=== PATIENT | female | born 1945 | race Caucasian/White ===

== ENCOUNTER 2016-04-26 14:45 | Emergency (ER) | payer MEDICARE, MEDICAID ==
[~2016-04-26] VITALS: Ht 167.6 cm; Wt 65.9 kg
[2016-04-26 14:48] VITALS: BP 148/92; PULSE 50; RESP 28; O2SAT 98
--- NOTE | 2016-04-26 15:11 | ED.REPORT ---
HPI-General Illness Date of Service Apr 26, 2016 ED Provider: Ilan Louis MD 70 year old female who is a former smoker presents to the ER accompanied by a female friend with two weeks of difficulty breathing. She also reports productive cough with green/yellow sputum, and chills. Patient denies fever, lower extremity pain, history of heart disease, history of blood clots, and recent surgery or immobilization. Nursing Notes Stated Complaint: DIFFICULTY BREATHING Chief Complaint: Respiratory Distress Nursing Notes Reviewed: Yes Allergies: Coded Allergies: codeine (Verified Allergy, Intermediate, swelling, 04/26/16) Uncoded Allergies: NKFA (Allergy, Unknown, 09/18/04) Scheduled Albuterol HFA (Proair HFA) 8.5 Gm Hfa.aer.ad 2 PUFFS INHALATION Q4H Prednisone (PredniSONE) 20 Mg Tablet 40 MG PO DAILY Scheduled PRN Benzonatate (Tessalon Perle) 100 Mg Capsule 100 MG PO TID PRN PRN For Cough General Time Seen by MD: 15:10 Chief Complaint Breathing problem Hx Obtained From: Patient Arrived By: Walk-in Sudden in Onset?: No Onset Occurred: More than a week ago... (2 weeks) Symptom Duration: Since onset Associated with: Reports: Cough, Denies: Fever Context Related History: Denies COPD Past Medical History Past Medical History Hypothyroid Reports: Diabetes mellitus, Hypertension Past Surgical History Reports: Cholecystectomy, Hysterectomy Smoking History Former Smoker Social History Other Social History: Good social support Ambulatory Status Independent Review of Systems Full Review of Systems Constitutional: Reports: Chills, Denies: Fever Respiratory: Reports: Prod cough, green, Prod cough, yellow, Shortness of breath, Denies: Hemoptysis GI: Denies: Abdominal pain, Constipation, Diarrhea, Nausea, Vomiting Musculoskeletal: Denies: Back pain, Extremity pain, Extremity swelling, Lumbar pain, Neck pain, Thoracic pain Complete sys rev & neg: except as marked. Physical Exam Vital Signs Vital Signs Date Time Temp Pulse Resp B/P Pulse Ox O2 Delivery O2 Flow Rate FiO2 04/26/16 17:23 36.9 60 18 144/79 98 Room Air 04/26/16 14:48 36.4 50 28 148/92 98 Room Air Initial VS: Reviewed Head / Eyes: Atraumatic, Normocephalic Neck: Supple, Non-tender, Full range of motion Abdomen / GI: Soft, Non-tender, No guarding, No rebound, No distention Extremities: Vascular intact, Neuro intact, No swelling, No tenderness Skin: Warm, Dry, No cyanosis Neurologic: Alert, Oriented, Nonfocal General/Constitutional: Awake, Alert, Well developed, Well nourished Diminished Breath Sounds: Positive: Decreased bilateral Wheezing / Retractions: Positive: Wheezing expiratory, Wheezing moderate Coarse breath sounds throughout. Dry cough. Cardiovascular: Heart rate NL, Regular rhythm, Heart sounds NL, Cap refill not delayed, Peripheral circulation NL Interpretation & Diagnostics Lab Results Interpretation Result Diagram: 04/26/16 1515 04/26/16 1515 Test 04/26/16 15:15 04/26/16 15:30 White Blood Count 8.7th/mm3 (3.8-10.1) Red Blood Count 4.85mil/mm3 (3.90-5.20) Hemoglobin 15.9g/dL (12.0-15.6) Hematocrit 44.9% (35.0-46.0) Mean Corpuscular Volume 92.6fL (81-100) Mean Corpuscular Hemoglobin 32.8pg (27.0-35.0) Mean Corpuscular Hemoglobin Concent 35.4% (32.0-37.0) Red Cell Distribution Width 12.7% (12.3-15.4) Platelet Count 286bil/L (150-400) Neutrophils (%) (Auto) 60.8% (40-74) Lymphocytes (%) (Auto) 30.1% (14-46) Monocytes (%) (Auto) 7.8% (4-12) Eosinophils (%) (Auto) 0.6% (0-5) Basophils (%) (Auto) 0.2% (0-3) Sodium Level 136mEq/L (134-144) Potassium Level 4.5mEq/L (3.5-5.2) Chloride Level 99mEq/L (97-108) Carbon Dioxide Level 21mmol/L (18-29) Blood Urea Nitrogen 17mg/dL (8-27) Creatinine 1.16mg/dL (0.57-1.00) Estimat Glomerular Filtration Rate 66mL/min (>59) Glucose Level 103mg/dL (60-99) Calcium Level 9.5mg/dL (8.5-10.1) Total Bilirubin 0.6mg/dL (0.0-1.2) Aspartate Amino Transf (AST/SGOT) 15U/L (0-50) Alanine Aminotransferase (ALT/SGPT) 6U/L (0-32) Alkaline Phosphatase 56U/L (25-165) Troponin T < 0.010ug/L (0.0-0.011) Pro-B-Type Natriuretic Peptide 854.0pg/mL (0-301) Total Protein 7.8g/dL (6.4-8.4) Albumin 3.7g/dL (3.4-5.0) Hold Pereira Top Tube Received (Received) ECG Interpretation ECG Interpretation: Sinus bradycardia Partial LBBB Normal axis Normal intervals Borderline ST segment elevation less than 1mm in leads v1 and v2 No prior ECG available for comparison Time: 16:12 X-Ray Chest Interpretation Chest Xray Interpretation: IMPRESSION: No acute cardiopulmonary abnormality Dictated by: Kal Johns M.D. on 04/26/2016 at 16:39 Approved by: Kal Johns M.D. on 04/26/2016 at 16:40 View: Portable, 1 view Interpretation / Wet Read by: Interpret - Radiologist Re-Eval/Medical Decision Med Decision/Clinical Course 70 year old female who is a former smoker presents to the ER accompanied by a female friend with two weeks of difficulty breathing. She also reports productive cough with green/yellow sputum, and chills. Patient denies fever, lower extremity pain, history of heart disease, history of blood clots, and recent surgery or immobilization. Upon arrival the patient is afebrile and hemodynamically stable with examination as above. CXR: Obtained, reviewed and interpreted by myself shows no evidence of acute infiltrates, effusions or pneumothorax. Cardiac and mediastinal silhouette normal. No bony or soft tissue abnormalities. EKG was obtained and interpreted by myself as documented above. Laboratory studies notable as below: CBC unremarkable BUN 17 Creatinine 1.16 Troponin negative BNP mildly elevated at 854 Here in the emergency department the patient was treated with 40 mg of oral prednisone as well as a DuoNeb treatment. She reported significant symptomatic improvement. Overall presentation most consistent with exacerbation of underlying asthma/COPD. Presentation is at this time I am convincing for acute coronary syndrome or pulmonary embolism. The patient has no recent major pulmonary embolus risk factors or physical exam findings suggestive of DVT. The patient was provided with a four-day course of prednisone as well as albuterol inhaler with spacer. I see no evidence of bacterial pneumonia at this time and I do not feel that antibiotics are indicated. Follow precautions reviewed in detail and she was discharged in stable condition. Source of Hx: Old records Counseled Regarding: Diagnosis, Lab results, Need for follow-up, When/why to return to ED Discharge & Departure Primary Impression: Bronchitis Additional Impressions: Asthma exacerbation Cough Shortness of breath Elevated brain natriuretic peptide (BNP) level Disposition: Home Discharge Condition All VS Reviewed: Yes Condition: Stable Patient Instructions: Acute Bronchitis (DC) Additional Instructions: Thank you for seeking care at emergency room. It is difficult for us to make definitive diagnoses in the ED but we believe that you are experiencing bronchitis. Our primary goal today in the ED was to evaluate you for any life-threatening conditions. Your evaluation was reassuring. You will be discharged with a prescription for Prednisone and albuterol. Please take these as directed. Use Tessalon perle as directed for your cough. You should follow-up with your primary doctor this week. You should return to the ED immediately if you develop worsening shortness of breath, chest pain, fever, chills, pain or swelling in your legs, or any other concerning signs or symptoms. Referrals: Mary Phipps PA-C (PCP) Viri[facility]ose[facility] Attestation Portions of this note were transcribed by Freddie Pineda. I, Dr. Louis, personally performed the history, physical exam and medical decision-making; I reviewed and confirmed the accuracy of the information in the transcribed note. Signed by: Lio Frye, 04/26/2016 and 16:50 copies to: Mary Phipps PA-C, Beck O MD Apr 26, 2016 15:11 FREDDIE PINEDA Apr 26, 2016 16:17
[2016-04-26 15:42] LABS: BASOPHILS % (AUTO) 0.2 % (0-3); EOSINOPHILS % (AUTO) 0.6 % (0-5); MONOCYTES % (AUTO) 7.8 % (4-12); Mean Corpuscular Hemoglobin 32.8 pg (27.0-35.0); Mean Corpuscular Volume 92.6 fL (81-100); NEUTROPHILS % (AUTO) 60.8 % (40-74); Platelet Count 286 bil/L (150-400)
[2016-04-26 16:09] LABS: TROPONIN T < 0.010 ug/L (0.0-0.011)
[2016-04-26] MEDS ORDERED: Albuterol-Ipratropium 3 mL Inhalation Solution NEB ONE (16:25)
[2016-04-26] MEDS ORDERED: BENZ-12 PO (16:25)
[2016-04-26] MEDS ORDERED: PRE20 PO (16:25)
[2016-04-26] MEDS ORDERED: predniSONE 20 mg Tablet PO ONE (16:25)
[2016-04-26] MEDS ORDERED: Albuterol HFA 60 Puff 8 Gm Inhaler INHALATION PRN (16:25)
[2016-04-26] MEDS ORDERED: ALBU8.5H2 INHALATION (16:26)
--- NOTE | 2016-04-26 16:42 | DRSVH ---
PROCEDURE: X-RAY CHEST ONE VIEW, PORTABLE ([id number]) INDICATIONS: productive cough TECHNIQUE: One view of the chest was acquired. COMPARISON: 06/24/2015 FINDINGS: Surgical changes and devices: Surgical clips right upper quadrant.. Lungs and pleura: No pleural effusions or pneumothorax. Lungs are clear. Mediastinum: Mediastinal contours appear normal. Heart size is normal. Aortic calcifications. Bones and chest wall: No suspicious bony lesions. Degenerative a.c. joint disease. Overlying soft t issues appear unremarkable. IMPRESSION: No acute cardiopulmonary abnormality Dictated by: Kal Johns M.D. on 04/26/2016 at 16:39 Approved by: Kal Johns M.D. on 04/26/2016 at 16:40
[2016-04-26 17:23] VITALS: BP 144/79; PULSE 60; RESP 18; O2SAT 98
== END 2016-04-26 17:24 | disposition home or self-care (01) ==
LOC: SED 14:45
DX: J45.901 Unspecified asthma with (acute) exacerbation (principal); E11.9 Type 2 diabetes mellitus without complications; I10 Essential (primary) hypertension; R79.89 Other specified abnormal findings of blood chemistry; Z87.891 Personal history of nicotine dependence; Z79.52 Long term (current) use of systemic steroids; Z79.51 Long term (current) use of inhaled steroids; Z88.5 Allergy status to narcotic agent
CPT/HCPCS: 71010; 80053; 83880; 84484; 85025; 93005; 99285; J7620